=== PATIENT | female | born 1975 | race Caucasian/White ===

== ENCOUNTER 2022-12-24 15:07 | Emergency (ER) | payer MEDICARE, MEDICAID, SELFPAY ==
[2022-12-24 15:30] VITALS: BP 168/89; PULSE 80; RESP 18; TEMP 36.6; O2SAT 100; BMI 25.7
--- NOTE | 2022-12-24 15:31 | ED.GENADULT ---
HPI - General Adult General Chief complaint: Psychiatric Symptoms <MEHRDAD Roman - Last Filed: 12/25/22 15:09> Stated complaint: SECT 12 PER EMS <MEHRDAD Roman - Last Filed: 12/25/22 15:09> Time Seen by Provider: 12/24/22 15:31 <MEHRDAD Roman - Last Filed: 12/25/22 15:09> Source: patient and EMS <MEHRDAD Roman Last Filed: 12/25/22 15:09> Mode of arrival: EMS <MEHRDAD Roman - Last Filed: 12/25/22 15:09> Limitations: no limitations <MEHRDAD Roman - Last Filed: 12/25/22 15:09> History of Present Illness HPI narrative: Patient is a 47 year old assigned female at with no reported medical history presenting to the emergency department today on a section 12 for risky behavior. Patient's family states that the patient has been posting her location online, asking for money in exchange for sexual favors. Patient states that nothing is wrong and she does not want to answer my questions but she does want her medication, right now. <MEHRDAD Roman - Last Filed: 12/25/22 15:09> Onset (ago): day(s) <MEHRDAD Roman - Last Filed: 12/25/22 15:09> Severity: mild <MEHRDAD Roman - Last Filed: 12/25/22 15:09> Relieving factors: none <MEHRDAD Roman Last Filed: 12/25/22 15:09> Exacerbating factors: none <MEHRDAD Roman Last Filed: 12/25/22 15:09> Associated symptoms: denies other symptoms <MEHRDAD Roman - Last Filed: 12/25/22 15:09> Treatments prior to arrival: none <MEHRDAD Roman - Last Filed: 12/25/22 15:09> Related Data Home medications: Home Medications Medication Instructions Recorded Confirmed carbamazepine 200 mg tablet 200 mg PO TID 12/24/22 12/24/22 cholecalciferol (vitamin D3) 25 25 mcg PO DAILY 12/24/22 12/24/22 mcg (1,000 unit) tablet levetiracetam 1,000 mg tablet 2,000 mg PO BID 12/24/22 12/25/22 mirtazapine 7.5 mg tablet 7.5 mg PO BEDTIME 12/24/22 12/24/22 nortriptyline 10 mg capsule 10 mg PO TID 12/24/22 12/24/22 prazosin 1 mg capsule 1 mg PO BEDTIME 12/24/22 12/24/22 levetiracetam 1,000 mg tablet 1,000 mg PO DAILY@1200 12/25/22 12/25/22 Previous Rx's Medication Instructions Recorded cephalexin 500 mg capsule 500 mg PO Q6H 7 days #28 caps 12/25/22 <MEHRDAD Roman Last Filed: 12/25/22 15:09> Allergies/adverse reactions: Allergies Allergy/AdvReac Type Severity Reaction Status Date / Time red dye Allergy Rash Verified 12/24/22 19:42 <MEHRDAD Roman Last Filed: 12/25/22 15:09> Review of Systems Constitutional: Constitutional: Reports no additional constitutional complaints, Denies chills, Denies fever(s) and Denies night sweats <MEHRDAD Roman Last Filed: 12/25/22 15:09> Eyes: Eyes: Reports no additional eye complaints, Denies blurry vision, Denies change in vision, Denies diplopia, Denies eye discharge, Denies loss of vision and Denies eye pain <MEHRDAD Roman Last Filed: 12/25/22 15:09> ENT: Denies dizziness <MEHRADD Roman Last Filed: 12/25/22 15:09> Cardiovascular: Cardiovascular: Reports no additional cardiovascular complaints, Denies chest pain, Denies lightheadedness, Denies Loss of Consciousness and Denies dyspnea <MEHRDAD Roman Last Filed: 12/25/22 15:09> Respiratory: Respiratory: Reports no additional respiratory complaints and Denies dyspnea <MEHRDAD Roman Last Filed: 12/25/22 15:09> Gastrointestinal: Gastrointestinal: Reports no additional gastrointestinal complaints, Denies abdominal pain, Denies melena, Denies hematochezia, Denies change in bowel habits and Denies change in stool character <MEHRDAD Roman Last Filed: 12/25/22 15:09> Genitourinary: Genitourinary: Denies hematuria, Denies urinary frequency, Denies dysuria, Denies urinary incontinence, Denies urinary hesitancy and Denies urinary urgency <MEHRDAD Roman - Last Filed: 12/25/22 15:09> Musculoskeletal: Musculoskeletal: Reports no additional musculoskeletal complaints, Denies numbness and Denies tingling <MEHRDAD Roman - Last Filed: 12/25/22 15:09> Neurologic: Reports behavioral changes, Denies dizziness, Denies loss of vision, Denies numbness and Denies tingling <MEHRDAD Roman - Last Filed: 12/25/22 15:09> Psychiatric: Psychiatric: Reports behavioral changes <MEHRDAD Roman - Last Filed: 12/25/22 15:09> Endocrine: Endocrine: Reports no additional endocrine complaints <MEHRDAD Roman - Last Filed: 12/25/22 15:09> Hematologic/Lymphatic: Hematologic/Lymphatic: Reports no additional hematologic/lymphatic complaints <MEHRDAD Roman - Last Filed: 12/25/22 15:09> Allergic/Immunologic: Allergic/Immunologic: Reports no additional allergic/immunologic complaints <MEHRDAD Roman - Last Filed: 12/25/22 15:09> [facility] Past Medical History Attestation statement: The following information was validated with the patient. <MEHRDAD Roman - Last Filed: 12/25/22 15:09> Source: old records reviewed and nursing notes reviewed <MEHRDAD Roman - Last Filed: 12/25/22 15:09> Social History Social History: Social History Advance Directives: No Advance Directives Information Provided: No Healthcare Proxy: No Guardian: No <MEHRDAD Roman - Last Filed: 12/25/22 15:09> Physical Exam ED Vital Signs: Vital Signs - 24 hr 12/25/22 20:00 12/26/22 06:44 12/26/22 07:16 Temperature 99.2 F 97.8 F 97.3 F Pulse Rate 99 85 93 Respiratory Rate 20 15 16 Blood Pressure 136/101 H 124/53 L 114/71 Pulse Oximetry 95 100 100 Oxygen Delivery Method Room Air Room Air Room Air BMI result Body Mass Index 25.7 <MEHRDAD Roman - Last Filed: 12/25/22 15:09> Vital Signs - 24 hr 12/25/22 20:00 12/26/22 06:44 12/26/22 07:16 Temperature 99.2 F 97.8 F 97.3 F Pulse Rate 99 85 93 Respiratory Rate 20 15 16 Blood Pressure 136/101 H 124/53 L 114/71 Pulse Oximetry 95 100 100 Oxygen Delivery Method Room Air Room Air Room Air BMI result Body Mass Index 25.7 <Link Correa MD - Last Filed: 12/26/22 15:51> Const General: cooperative, no acute distress, alert and awake <MEHRDAD Roman - Last Filed: 12/25/22 15:09> Nutritional Appearance: well nourished <MEHRDAD Roman - Last Filed: 12/25/22 15:09> Orientation/consciousness: patient oriented x3 <MEHRDAD Roman - Last Filed: 12/25/22 15:09> Limitations: no limitations <MEHRDAD Roman - Last Filed: 12/25/22 15:09> HENMT Head: Yes normal to inspection and Yes atraumatic <MEHRDAD Roman - Last Filed: 12/25/22 15:09> Ears: hearing grossly normal bilaterally and external ears normal <MEHRDAD Roman - Last Filed: 12/25/22 15:09> General nose exam: Normal external nose present, no nasal discharge noted and no epistaxis <MEHRDAD Roman - Last Filed: 12/25/22 15:09> Face and sinus: Yes normal facial exam, No abrasion and No laceration <MEHRDAD Roman - Last Filed: 12/25/22 15:09> Mouth: Normal oral and palatal mucosa present, no drooling and no muffled voice <MEHRDAD Roman - Last Filed: 12/25/22 15:09> Eyes General: appearance normal, both eyes and all related structures <MEHRDAD Roman Last Filed: 12/25/22 15:09> Periorbital: periorbital findings normal <MEHRDAD Roman - Last Filed: 12/25/22 15:09> Eyelids: Yes eyelids normal <Elsa High PA - Last Filed: 12/25/22 15:09> Conjunctivae: conjunctivae normal <Elsa High PA - Last Filed: 12/25/22 15:09> Pupils: Equal, round and reactive pupils present <Elsa High PA - Last Filed: 12/25/22 15:09> EOM: EOMs intact bilaterally <Elsa High PA - Last Filed: 12/25/22 15:09> Neck Neck: Yes normal visual inspection, Yes full ROM and Yes no lymphadenopathy <Elsa High PA - Last Filed: 12/25/22 15:09> Chest Chest palpation & inspection: normal inspection of the chest <Elsa High PA - Last Filed: 12/25/22 15:09> Resp Effort & Inspection: normal respiratory effort and able to speak in complete sentences <Elsa High PA - Last Filed: 12/25/22 15:09> Auscultation: clear to auscultation bilaterally <Elsa High PA - Last Filed: 12/25/22 15:09> Cardio Rate: regular rate <Elsa High PA - Last Filed: 12/25/22 15:09> Rhythm: regular rhythm <Elsa High PA - Last Filed: 12/25/22 15:09> GI Inspection: Yes normal to inspection <Elsa High PA - Last Filed: 12/25/22 15:09> Palpation (GI): Soft to palpation, not firm and nontender <Elsa High PA - Last Filed: 12/25/22 15:09> Neuro General: patient oriented x3 and moves all extremities <Elsa High PA - Last Filed: 12/25/22 15:09> Cranial nerves: Yes Equal, round and reactive pupils present <Elsa High PA - Last Filed: 12/25/22 15:09> Cognition (Neuro): normal cognition <Elsa High PA - Last Filed: 12/25/22 15:09> Motor exam (neuro): 5/5 motor strength present throughout <Elsa High PA - Last Filed: 12/25/22 15:09> Sensory Exam: Normal double simultaneous stimulation for sensation <MEHRDAD Roman Last Filed: 12/25/22 15:09> Coordination: [id number] test normal <MEHRDAD Roman Last Filed: 12/25/22 15:09> Extrem General: Yes normal to inspection, Yes full ROM and Yes capillary refill normal <MEHRDAD Roman Last Filed: 12/25/22 15:09> Psych Affect: Animated affect present <MEHRDAD Roman Last Filed: 12/25/22 15:09> Thought process: Illogical thought process present <MEHRDAD Roman Last Filed: 12/25/22 15:09> Insight: Limited insight present (Psych) <MEHRDAD Roman Last Filed: 12/25/22 15:09> Judgement: Limited judgement present (Psych) <MEHRDAD Roman Last Filed: 12/25/22 15:09> Course Course Course Narrative: 12/25/2022 1508: Patient cleared for discharge. Patient has a UTI. Discharge and antibiotics put in. <MEHRDAD Roman Last Filed: 12/25/22 15:09> 12/25/2022 1508: Patient cleared for discharge. Patient has a UTI. Discharge and antibiotics put in. 0 01/2023: End physician observation: The patient will be discharged in the care of a DDS. <Link Correa MD - Last Filed: 12/26/22 15:51> Medications Administered Generic Name Dose Route Start Last Admin Trade Name Terese PRN Reason Stop Dose Admin Carbamazepine 200 mg 12/24/22 21:00 12/26/22 14:53 Carbamazepine 200 Mg Tablet PO 200 mg TID OLEKSANDR Administration Levetiracetam 2,000 mg 12/25/22 09:30 12/26/22 08:55 Levetiracetam 1,000 Mg Tablet PO 2,000 mg BID OLEKSANDR Administration Levetiracetam 1,000 mg 12/25/22 12:00 12/26/22 12:25 Levetiracetam 1,000 Mg Tablet PO 1,000 mg DAILY@1200 [facility] Administration Mirtazapine 7.5 mg 12/24/22 21:00 12/25/22 20:01 Mirtazapine 7.5 Mg Tablet PO 7.5 mg BEDTIME OLEKSANDR Administration Nortriptyline HCl 10 mg 12/24/22 21:00 12/26/22 14:53 Nortriptyline Hcl 10 Mg Capsule PO 10 mg TID OLEKSANDR Administration Prazosin HCl 1 mg 12/24/22 21:00 12/25/22 20:01 Prazosin Hcl 1 Mg Capsule PO 1 mg BEDTIME OLEKSANDR Administration Protocol Vitamin D 25 mcg 12/25/22 09:00 12/26/22 08:56 Cholecalciferol (Vitamin D3) 25 Mcg Tablet PO 25 mcg DAILY OLEKSANDR Administration Discontinued Medications Generic Name Dose Route Start Last Admin Trade Name Freq PRN Reason Stop Dose Admin Levetiracetam 1,000 mg 12/24/22 21:00 12/25/22 10:33 Levetiracetam 1,000 Mg Tablet PO Not Given BID OLEKSANDR Lorazepam 2 mg 12/24/22 22:38 12/24/22 22:51 Lorazepam 1 Mg Tablet PO 12/24/22 22:39 2 mg ONCE ONE Administration Lorazepam 2 mg 12/25/22 09:08 12/25/22 09:14 Lorazepam 1 Mg Tablet PO 12/25/22 09:09 2 mg ONCE ONE Administration Lorazepam 2 mg 12/25/22 22:16 12/25/22 22:20 Lorazepam 1 Mg Tablet PO 12/25/22 22:17 2 mg ONCE ONE Administration Olanzapine 5 mg 12/24/22 22:38 12/24/22 22:51 Olanzapine 5 Mg Tablet PO 12/24/22 22:39 5 mg ONCE ONE Administration Olanzapine 5 mg 12/25/22 22:16 12/25/22 22:20 Olanzapine 5 Mg Tablet PO 12/25/22 22:17 5 mg ONCE ONE Administration <MEHRDAD Roman - Last Filed: 12/25/22 15:09> Medications Administered Generic Name Dose Route Start Last Admin Trade Name Freq PRN Reason Stop Dose Admin Carbamazepine 200 mg 12/24/22 21:00 12/26/22 14:53 Carbamazepine 200 Mg Tablet PO 200 mg TID OLEKSANDR Administration Levetiracetam 2,000 mg 12/25/22 09:30 12/26/22 08:55 Levetiracetam 1,000 Mg Tablet PO 2,000 mg BID OLEKSANDR Administration Levetiracetam 1,000 mg 12/25/22 12:00 12/26/22 12:25 Levetiracetam 1,000 Mg Tablet PO 1,000 mg DAILY@1200 OLEKSANDR Administration Mirtazapine 7.5 mg 12/24/22 21:00 12/25/22 20:01 Mirtazapine 7.5 Mg Tablet PO 7.5 mg BEDTIME OLEKSANDR Administration Nortriptyline HCl 10 mg 12/24/22 21:00 12/26/22 14:53 Nortriptyline Hcl 10 Mg Capsule PO 10 mg TID OLEKSANDR Administration Prazosin HCl 1 mg 12/24/22 21:00 12/25/22 20:01 Prazosin Hcl 1 Mg Capsule PO 1 mg BEDTIME OLEKSANDR Administration Protocol Vitamin D 25 mcg 12/25/22 09:00 12/26/22 08:56 Cholecalciferol (Vitamin D3) 25 Mcg Tablet PO 25 mcg DAILY OLEKSANDR Administration Discontinued Medications Generic Name Dose Route Start Last Admin Trade Name Freq PRN Reason Stop Dose Admin Levetiracetam 1,000 mg 12/24/22 21:00 12/25/22 10:33 Levetiracetam 1,000 Mg Tablet PO Not Given BID OLEKSANDR Lorazepam 2 mg 12/24/22 22:38 12/24/22 22:51 Lorazepam 1 Mg Tablet PO 12/24/22 22:39 2 mg ONCE ONE Administration Lorazepam 2 mg 12/25/22 09:08 12/25/22 09:14 Lorazepam 1 Mg Tablet PO 12/25/22 09:09 2 mg ONCE ONE Administration Lorazepam 2 mg 12/25/22 22:16 12/25/22 22:20 Lorazepam 1 Mg Tablet PO 12/25/22 22:17 2 mg ONCE ONE Administration Olanzapine 5 mg 12/24/22 22:38 12/24/22 22:51 Olanzapine 5 Mg Tablet PO 12/24/22 22:39 5 mg ONCE ONE Administration Olanzapine 5 mg 12/25/22 22:16 12/25/22 22:20 Olanzapine 5 Mg Tablet PO 12/25/22 22:17 5 mg ONCE ONE Administration <Link Correa MD - Last Filed: 12/26/22 15:51> Medical Decision Making Medical Decision Making MDM Narrative: Patient is a 47 year old assigned female at with no reported medical history presenting to the emergency department today on a section 12. Patient's physical exam showed an illogical individual clearly worked up. Patient's blood work showed no acute process. Patient's urine is pending at this time. Patient is awaiting CARE team evaluation however, she will likely be kept for inpatient psychiatric care. <MEHRDAD Roman - Last Filed: 12/25/22 15:09> Patient is a 47 year old assigned female at with no reported medical history presenting to the emergency department today on a section 12. Patient's physical exam showed an illogical individual clearly worked up. Patient's blood work showed no acute process. Patient's urine is pending at this time. Patient is awaiting CARE team evaluation however, she will likely be kept for inpatient psychiatric care. 0645: Start physician observation: Patient presented with paranoid ideation, she is on a Section 12, bed search is being done by [facility]. There were no reported incidents by the nursing staff on this patient overnight. The patient's medications have been reconciled in ordered. The patient will be kept in the emergency department Behavioral Health Unit until appropriate disposition can be determined. <Link Correa MD - Last Filed: 12/26/22 15:51> Differential Diagnosis Differential Diagnoses: The differential diagnosis associated with the presentation includes <MEHRDAD Roman - Last Filed: 12/25/22 15:09> psychosis <MEHRDAD Roman - Last Filed: 12/25/22 15:09> Lab Data MDM Lab Attestation statement: I reviewed the patient's lab results. <MEHRDAD Roman - Last Filed: 12/25/22 15:09> Result Diagrams: 12/24/22 15:54 12/24/22 15:54 <MEHRDAD Roman - Last Filed: 12/25/22 15:09> Labs: Lab Results 12/24/22 12/24/22 12/24/22 Range/Units 15:54 15:54 15:54 WBC 7.6 (4.8-10.8) X10*3/uL RBC 4.42 (4.20-5.50) X10*6/uL Hgb 13.5 (12.0-16.0) g/dl Hct 40.7 (37.0-47.0) % MCV 92.1 (80.0-98.0) fL MCH 30.5 (27.0-33.0) pg MCHC 33.2 (31.0-35.0) g/dl RDW 13.3 (11.0-16.0) % Plt Count 313 (160-400) X10*3/uL MPV 10.1 (9.4-12.3) fL Immature Gran % (Auto) 0.4 (0.0-0.4) % Neut % (Auto) 66.2 (45-73) % Lymph % (Auto) 21.4 (20-40) % Starr % (Auto) 10.8 (2-11) % Eos % (Auto) 0.8 (0-4) % Baso % (Auto) 0.4 (0-2) % Lymph # (Auto) 1.6 (1.2-4.9) X10*3/uL Starr # (Auto) 0.8 (0.1-1.2) X10*3/uL Eos # (Auto) 0.1 (0.0-0.4) X10*3/uL Baso # (Auto) 0.0 (0.0-0.2) X10*3/uL Abs Immat Gran (auto) 0.03 (0.00-0.03) X10*3/uL Absolute Neuts (auto) 5.0 (2.0-8.3) x10*3/uL Absolute Nucleated RBC 0.000 (0.0-0.012) X10*3/uL Nucleated RBC % (auto) 0.0 (0.0-0.2) /100WBC Sodium 140 (135-145) mmol/L Potassium 3.5 (3.3-5.1) mmol/L Chloride 110 H (96-108) mmol/L Carbon Dioxide 19 L (22-29) mmol/L Anion Gap 15 (12-20) BUN 8 L (9-16) mg/dL Creatinine 0.74 (0.5-1.4) mg/dL Estim Creat Clear Calc 76.0 Estimated GFR > 60 Fasting Glucose 87 (60-99) mg/dL Calcium 8.9 (8.4-10.2) mg/dL Total Bilirubin 0.3 (0.0-1.0) mg/dL AST 33 H (5-31) U/L ALT 37 H (0-31) U/L Alkaline Phosphatase 136 H (39-117) U/L Total Protein 7.2 (6.5-8.0) g/dL Albumin 4.0 (3.5-5.0) g/dL Urine Color Urine Appearance Urine pH (5.0-9.0) Ur Specific Teller (1.005-1.025) Urine Protein (Neg-Trace) mg/dL Urine Glucose (UA) (Negative) mg/dL Urine Ketones (Negative) mg/dL Urine Blood (Negative) Urine Nitrite (Negative) Ur Leukocyte Esterase (Negative) Urine RBC (0-2) /HPF Urine WBC (0-5) /HPF Ur Squamous Epith Cells (0-2) /HPF Urine Bacteria (None Seen) Hyaline Casts (0-2) /LPF Urine Opiates Screen (Not Detect) Urine Fentanyl Screen (Not Detect) Ur Barbiturates Screen (Not Detect) Ur Phencyclidine Scrn (Not Detect) Ur Amphetamines Screen (Not Detect) U Benzodiazepines Scrn (Not Detect) Urine Cocaine Screen (Not Detect) U Marijuana (THC) Screen (Not Detect) COVID-19 (JANIS) Negative (Negative) COVID-19 Clin Com See Note 12/24/22 12/24/22 12/25/22 Range/Units 16:54 16:54 15:17 WBC (4.8-10.8) X10*3/uL RBC (4.20-5.50) X10*6/uL Hgb (12.0-16.0) g/dl Hct (37.0-47.0) % MCV (80.0-98.0) fL MCH (27.0-33.0) pg MCHC (31.0-35.0) g/dl RDW (11.0-16.0) % Plt Count (160-400) X10*3/uL MPV (9.4-12.3) fL Immature Gran % (Auto) (0.0-0.4) % Neut % (Auto) (45-73) % Lymph % (Auto) (20-40) % Starr % (Auto) (2-11) % Eos % (Auto) (0-4) % Baso % (Auto) (0-2) % Lymph # (Auto) (1.2-4.9) X10*3/uL Starr # (Auto) (0.1-1.2) X10*3/uL Eos # (Auto) (0.0-0.4) X10*3/uL Baso # (Auto) (0.0-0.2) X10*3/uL Abs Immat Gran (auto) (0.00-0.03) X10*3/uL Absolute Neuts (auto) (2.0-8.3) x10*3/uL Absolute Nucleated RBC (0.0-0.012) X10*3/uL Nucleated RBC % (auto) (0.0-0.2) /100WBC Sodium (135-145) mmol/L Potassium (3.3-5.1) mmol/L Chloride (96-108) mmol/L Carbon Dioxide (22-29) mmol/L Anion Gap (12-20) BUN (9-16) mg/dL Creatinine (0.5-1.4) mg/dL Estim Creat Clear Calc Estimated GFR Fasting Glucose (60-99) mg/dL Calcium (8.4-10.2) mg/dL Total Bilirubin (0.0-1.0) mg/dL AST (5-31) U/L ALT (0-31) U/L Alkaline Phosphatase (39-117) U/L Total Protein (6.5-8.0) g/dL Albumin (3.5-5.0) g/dL Urine Color Yellow Urine Appearance Cloudy Urine pH 6.0 (5.0-9.0) Ur Specific Teller >= 1.030 H (1.005-1.025) Urine Protein 30 (1+) H (Neg-Trace) mg/dL Urine Glucose (UA) Negative (Negative) mg/dL Urine Ketones Trace (Negative) mg/dL Urine Blood Negative (Negative) Urine Nitrite Negative (Negative) Ur Leukocyte Esterase Moderate (2+) H (Negative) Urine RBC 6-10 H (0-2) /HPF Urine WBC 11-20 H (0-5) /HPF Ur Squamous Epith Cells 11-20 (0-2) /HPF Urine Bacteria 2+ (None Seen) Hyaline Casts 0-2 (0-2) /LPF Urine Opiates Screen Not Detected (Not Detect) Urine Fentanyl Screen Not Detected (Not Detect) Ur Barbiturates Screen Not Detected (Not Detect) Ur Phencyclidine Scrn Not Detected (Not Detect) Ur Amphetamines Screen Not Detected (Not Detect) U Benzodiazepines Scrn Not Detected (Not Detect) Urine Cocaine Screen POSITIVE H (Not Detect) U Marijuana (THC) Screen Not Detected (Not Detect) COVID-19 (JANIS) Negative (Negative) COVID-19 Clin Com See Note <MEHRDAD Roman - Last Filed: 12/25/22 15:09> Lab Results 12/24/22 12/24/22 12/24/22 Range/Units 15:54 15:54 15:54 WBC 7.6 (4.8-10.8) X10*3/uL RBC 4.42 (4.20-5.50) X10*6/uL Hgb 13.5 (12.0-16.0) g/dl Hct 40.7 (37.0-47.0) % MCV 92.1 (80.0-98.0) fL MCH 30.5 (27.0-33.0) pg MCHC 33.2 (31.0-35.0) g/dl RDW 13.3 (11.0-16.0) % Plt Count 313 (160-400) X10*3/uL MPV 10.1 (9.4-12.3) fL Immature Gran % (Auto) 0.4 (0.0-0.4) % Neut % (Auto) 66.2 (45-73) % Lymph % (Auto) 21.4 (20-40) % Starr % (Auto) 10.8 (2-11) % Eos % (Auto) 0.8 (0-4) % Baso % (Auto) 0.4 (0-2) % Lymph # (Auto) 1.6 (1.2-4.9) X10*3/uL Starr # (Auto) 0.8 (0.1-1.2) X10*3/uL Eos # (Auto) 0.1 (0.0-0.4) X10*3/uL Baso # (Auto) 0.0 (0.0-0.2) X10*3/uL Abs Immat Gran (auto) 0.03 (0.00-0.03) X10*3/uL Absolute Neuts (auto) 5.0 (2.0-8.3) x10*3/uL Absolute Nucleated RBC 0.000 (0.0-0.012) X10*3/uL Nucleated RBC % (auto) 0.0 (0.0-0.2) /100WBC Sodium 140 (135-145) mmol/L Potassium 3.5 (3.3-5.1) mmol/L Chloride 110 H (96-108) mmol/L Carbon Dioxide 19 L (22-29) mmol/L Anion Gap 15 (12-20) BUN 8 L (9-16) mg/dL Creatinine 0.74 (0.5-1.4) mg/dL Estim Creat Clear Calc 76.0 Estimated GFR > 60 Fasting Glucose 87 (60-99) mg/dL Calcium 8.9 (8.4-10.2) mg/dL Total Bilirubin 0.3 (0.0-1.0) mg/dL AST 33 H (5-31) U/L ALT 37 H (0-31) U/L Alkaline Phosphatase 136 H (39-117) U/L Total Protein 7.2 (6.5-8.0) g/dL Albumin 4.0 (3.5-5.0) g/dL Urine Color Urine Appearance Urine pH (5.0-9.0) Ur Specific Teller (1.005-1.025) Urine Protein (Neg-Trace) mg/dL Urine Glucose (UA) (Negative) mg/dL Urine Ketones (Negative) mg/dL Urine Blood (Negative) Urine Nitrite (Negative) Ur Leukocyte Esterase (Negative) Urine RBC (0-2) /HPF Urine WBC (0-5) /HPF Ur Squamous Epith Cells (0-2) /HPF Urine Bacteria (None Seen) Hyaline Casts (0-2) /LPF Urine Opiates Screen (Not Detect) Urine Fentanyl Screen (Not Detect) Ur Barbiturates Screen (Not Detect) Ur Phencyclidine Scrn (Not Detect) Ur Amphetamines Screen (Not Detect) U Benzodiazepines Scrn (Not Detect) Urine Cocaine Screen (Not Detect) U Marijuana (THC) Screen (Not Detect) COVID-19 (JANIS) Negative (Negative) COVID-19 Clin Com See Note 04/03/23 04/03/23 04/04/23 Range/Units 16:54 16:54 15:17 WBC (4.8-10.8) X10*3/uL RBC (4.20-5.50) X10*6/uL Hgb (12.0-16.0) g/dl Hct (37.0-47.0) % MCV (80.0-98.0) fL MCH (27.0-33.0) pg MCHC (31.0-35.0) g/dl RDW (11.0-16.0) % Plt Count (160-400) X10*3/uL MPV (9.4-12.3) fL Immature Gran % (Auto) (0.0-0.4) % Neut % (Auto) (45-73) % Lymph % (Auto) (20-40) % Starr % (Auto) (2-11) % Eos % (Auto) (0-4) % Baso % (Auto) (0-2) % Lymph # (Auto) (1.2-4.9) X10*3/uL Starr # (Auto) (0.1-1.2) X10*3/uL Eos # (Auto) (0.0-0.4) X10*3/uL Baso # (Auto) (0.0-0.2) X10*3/uL Abs Immat Gran (auto) (0.00-0.03) X10*3/uL Absolute Neuts (auto) (2.0-8.3) x10*3/uL Absolute Nucleated RBC (0.0-0.012) X10*3/uL Nucleated RBC % (auto) (0.0-0.2) /100WBC Sodium (135-145) mmol/L Potassium (3.3-5.1) mmol/L Chloride (96-108) mmol/L Carbon Dioxide (22-29) mmol/L Anion Gap (12-20) BUN (9-16) mg/dL Creatinine (0.5-1.4) mg/dL Estim Creat Clear Calc Estimated GFR Fasting Glucose (60-99) mg/dL Calcium (8.4-10.2) mg/dL Total Bilirubin (0.0-1.0) mg/dL AST (5-31) U/L ALT (0-31) U/L Alkaline Phosphatase (39-117) U/L Total Protein (6.5-8.0) g/dL Albumin (3.5-5.0) g/dL Urine Color Yellow Urine Appearance Cloudy Urine pH 6.0 (5.0-9.0) Ur Specific Teller >= 1.030 H (1.005-1.025) Urine Protein 30 (1+) H (Neg-Trace) mg/dL Urine Glucose (UA) Negative (Negative) mg/dL Urine Ketones Trace (Negative) mg/dL Urine Blood Negative (Negative) Urine Nitrite Negative (Negative) Ur Leukocyte Esterase Moderate (2+) H (Negative) Urine RBC 6-10 H (0-2) /HPF Urine WBC 11-20 H (0-5) /HPF Ur Squamous Epith Cells 11-20 (0-2) /HPF Urine Bacteria 2+ (None Seen) Hyaline Casts 0-2 (0-2) /LPF Urine Opiates Screen Not Detected (Not Detect) Urine Fentanyl Screen Not Detected (Not Detect) Ur Barbiturates Screen Not Detected (Not Detect) Ur Phencyclidine Scrn Not Detected (Not Detect) Ur Amphetamines Screen Not Detected (Not Detect) U Benzodiazepines Scrn Not Detected (Not Detect) Urine Cocaine Screen POSITIVE H (Not Detect) U Marijuana (THC) Screen Not Detected (Not Detect) COVID-19 (JANIS) Negative (Negative) COVID-19 Clin Com See Note <Link Correa MD - Last Filed: 12/26/22 15:51> Independent Historian Clinical information obtained from an independent historian. History obtained from or confirmed by: EMS <MEHRDAD Roman - Last Filed: 12/25/22 15:09> Discharge Plan Discharge Clinical Impression: Acute psychosis, Urinary tract infection <MEHRDAD Roman - Last Filed: 12/25/22 15:09> Patient Disposition: Still a Patient <MEHRDAD Roman - Last Filed: 12/25/22 15:09> Instructions: Urinary Tract Infection in Women (DC) <MEHRDAD Roman - Last Filed: 12/25/22 15:09> Additional Instructions: Follow up with your primary care provider. Return to the emergency department immediately if your symptoms worsen or if you develop any dizziness, shortness of breath, difficulty breathing, chest pain, blurry vision, loss of vision, nausea, vomiting, abdominal pain, fever, chills, back pain, or any other complaints. <MEHRDAD Roman - Last Filed: 12/25/22 15:09> Prescriptions: New cephalexin 500 mg capsule 500 mg PO Q6H 7 Days Qty: 28 0RF No Action prazosin 1 mg Capsule 1 mg PO BEDTIME nortriptyline 10 mg Capsule 10 mg PO TID mirtazapine 7.5 mg Tablet 7.5 mg PO BEDTIME levetiracetam 1,000 mg Tablet 2,000 mg PO BID cholecalciferol (vitamin D3) 25 mcg (1,000 unit) Tablet 25 mcg PO DAILY carbamazepine 200 mg Tablet 200 mg PO TID levetiracetam 1,000 mg tablet 1,000 mg PO DAILY@1200 <MEHRDAD Roman - Last Filed: 12/25/22 15:09> Interventions: [place]-Suicide Risk Severity Scale Last Done: 12/26/22 06:00 <MEHRDAD Roman - Last Filed: 12/25/22 15:09>
[2022-12-24 16:05] LABS: MANUAL DIFF FLAG NO
[2022-12-24 16:07] LABS: Basophils Percent Auto 0.4 % (0-2); Eosinophils Absolute Auto 0.1 X10*3/uL (0.0-0.4); Eosinophils Percent Auto 0.8 % (0-4); Hematocrit 40.7 % (37.0-47.0); Hemoglobin 13.5 g/dl (12.0-16.0); Imm Gran Abs Auto 0.03 X10*3/uL (0.00-0.03); Imm Gran Pct Auto 0.4 % (0.0-0.4); Lymphocytes Absolute Auto 1.6 X10*3/uL (1.2-4.9); Lymphocytes Percent Auto 21.4 % (20-40); Mean Corpuscular HGB Conc 33.2 g/dl (31.0-35.0); Mean Corpuscular Hemoglobin 30.5 pg (27.0-33.0); Mean Corpuscular Volume 92.1 fL (80.0-98.0); Mean Platelet Volume 10.1 fL (9.4-12.3); Monocytes Absolute Auto 0.8 X10*3/uL (0.1-1.2); Monocytes Percent Auto 10.8 % (2-11); Neutrophils Percent Auto 66.2 % (45-73); Platelet Count 313 X10*3/uL (160-400); Red Blood Count 4.42 X10*6/uL (4.20-5.50); Red Cell Distribution Width 13.3 % (11.0-16.0); White Blood Count 7.6 X10*3/uL (4.8-10.8)
[2022-12-24 16:28] LABS: COVID-19 Test Negative (Negative); IDNOW Serial# BCCEAD1C
[2022-12-24 16:36] LABS: Alanine Aminotransferase 37 U/L (0-31); Alkaline Phosphatase 136 U/L (39-117); Anion Gap 15 (12-20); Aspartate Amino Transferase 33 U/L (5-31); Bilirubin Total 0.3 mg/dL (0.0-1.0); Blood Urea Nitrogen 8 mg/dL (9-16); Calcium 8.9 mg/dL (8.4-10.2); Carbon Dioxide 19 mmol/L (22-29); Chloride 110 mmol/L (96-108); Estimated Glomerular Filt Rate > 60; Glucose Fasting 87 mg/dL (60-99); Potassium 3.5 mmol/L (3.3-5.1); Sodium 140 mmol/L (135-145); Total Protein 7.2 g/dL (6.5-8.0)
--- NOTE | 2022-12-24 16:39 | MHC.CARE ---
CARE Team is made aware by N that pt was seen by N in the community and was made a bedsearch.
[2022-12-24 17:04] LABS: Appearance Urine Cloudy; Color Urine Yellow; Glucose Urine UA Negative (Negative); Leukocyte Esterase Urine Moderate (2+) (Negative); Nitrite Urine Negative (Negative); Specific Gravity - Urine >= 1.030 (1.005-1.025); UMIC TRIGGER UACC YES; Urine Blood Negative (Negative); Urine Ketones Trace mg/dL (Negative); Urine Protein 30 (1+) mg/dL (Neg-Trace)
[2022-12-24 17:11] LABS: Amphetamine Screen Urine Not Detected (Not Detect); Barbiturates, Urine Not Detected (Not Detect); Benzodiazepines Screen Urine Not Detected (Not Detect); Cannabinoid Screen Urine Not Detected (Not Detect); Cocaine Screen Urine POSITIVE (Not Detect); Fentanyl, urine Not Detected (Not Detect); Opiate Screen Urine Not Detected (Not Detect); Phencyclidine Screen Urine Not Detected (Not Detect)
[2022-12-24 17:42] LABS: Bacteria Urine 2+ (None Seen); Hyaline Casts Urine 0-2 /LPF (0-2); UACC Culture Trigger YES
[2022-12-24] MEDS: levETIRAcetam 1,000 MG TABLET 1000 MG PO (17:49)
--- NOTE | 2022-12-24 18:12 | PC.NURSE ---
patient pacing the unit, increasingly agitated about her seizure medications. ED provider made aware, told to give 2100 keppra early. Keppra given early- patient slowly starting to calm down. will CTM
[2022-12-24] MEDS: Prazosin HCL 1 MG CAPSULE PO (20:01)
[2022-12-24] MEDS: carBAMazepine 200 MG TABLET PO (20:01)
[2022-12-24] MEDS: Nortriptyline HCl 10 MG CAPSULE PO (20:01)
[2022-12-24] MEDS: Mirtazapine 7.5 MG TABLET PO (20:01)
[2022-12-24] MEDS: LORazepam 1 MG TABLET 2 MG PO (22:51)
[2022-12-24] MEDS: OLANZapine 5 MG TABLET PO (22:51)
--- NOTE | 2022-12-25 06:42 | PC.NURSE ---
Patient slept through the night, no distress observed/reported, thought content paranoid delusional, disposition is section 12 inpatient bed search per N, med rec completed, medication compliant, mood labile and tearful, Olanzapine 5 mg PO and Ativan 2 mg PO at 2251 with + effect, VSS, will continue to monitor.
[2022-12-25 07:01] VITALS: BP 122/83; PULSE 85; RESP 16; O2SAT 97
[2022-12-25] MEDS: Cholecalciferol (Vitamin D3) 25 MCG TABLET PO (08:47)
[2022-12-25] MEDS: Nortriptyline HCl 10 MG CAPSULE PO ×3 (09:14→20:01)
[2022-12-25] MEDS: LORazepam 1 MG TABLET 2 MG PO ×2 (09:14→22:20)
[2022-12-25] MEDS: carBAMazepine 200 MG TABLET PO ×3 (09:14→20:01)
--- NOTE | 2022-12-25 09:26 | ECG_ITS ---
Test Reason : MEDICAL CLEARANCE Blood Pressure : / mmHG Vent. Rate : 075 BPM Atrial Rate : 075 BPM P-R Int : 112 ms QRS Dur : 076 ms QT Int : 392 ms P-R-T Axes : 046 048 036 degrees QTc Int : 437 ms Normal sinus rhythm with sinus arrhythmia Septal infarct , age undetermined Abnormal ECG No previous ECGs available Referred By: Link Correa Electronically Signed By:Sohan Reid
[2022-12-25] MEDS: levETIRAcetam 1,000 MG TABLET 2000 MG PO ×2 (09:34→20:03)
--- NOTE | 2022-12-25 10:35 | PC.NURSE ---
Pt given PRN for anxiety with pos. effect noted. Pt sleeping at this time.
[2022-12-25] MEDS: levETIRAcetam 1,000 MG TABLET 1000 MG PO (14:44)
--- NOTE | 2022-12-25 15:29 | MHC.CARE ---
Patient evaluated by the CARE Team, she does not require an inpatient psychiatric admission. [facility] updated and in the process of making arrangements. Arch Cushion Skiving Machine Operator, YORDY Keller and ED provider, MEHRDAD Roman consulted and in agreement with plan to discharge patient.
[2022-12-25 15:40] LABS: COVID-19 Test Negative (Negative); IDNOW Serial# 08D9AD1C
--- NOTE | 2022-12-25 16:58 | PC.NURSE ---
Pt calm and to Nurses station for water.
--- NOTE | 2022-12-25 18:38 | MHC.CARE ---
[facility] did not make arrangements for patient's discharge as agreed and are not reachable after business hours. Patient will spend the night in the ED, CARE Team will coordinate the discharge tomorrow. Evening provider updated and removed the discharge order.
[2022-12-25 20:00] VITALS: BP 136/101; PULSE 99; RESP 20; TEMP 37.3; O2SAT 95
[2022-12-25] MEDS: Prazosin HCL 1 MG CAPSULE PO (20:01)
[2022-12-25] MEDS: Mirtazapine 7.5 MG TABLET PO (20:01)
[2022-12-25] MEDS: OLANZapine 5 MG TABLET PO (22:20)
--- NOTE | 2022-12-26 05:56 | PC.NURSE ---
Patient slept through the night, no distress observed/reported, thought content paranoid delusional, disposition per care team is current provider, medication compliant, mood labile and tearful, Olanzapine 5 mg PO and Ativan 2 mg PO at 2220 with + effect, VSS, will continue to monitor.
[2022-12-26 06:44] VITALS: BP 124/53; PULSE 85; RESP 15; TEMP 36.6; O2SAT 100
[2022-12-26 07:16] VITALS: BP 114/71; PULSE 93; RESP 16; TEMP 36.3; O2SAT 100
--- NOTE | 2022-12-26 07:18 | PC.NURSE ---
patient appears to remain asleep at present respirations are even and unlabored patient appears in no distress
[2022-12-26] MEDS: levETIRAcetam 1,000 MG TABLET 2000 MG PO (08:55)
[2022-12-26] MEDS: Cholecalciferol (Vitamin D3) 25 MCG TABLET PO (08:56)
[2022-12-26] MEDS: carBAMazepine 200 MG TABLET PO ×2 (08:56→14:53)
[2022-12-26] MEDS: Nortriptyline HCl 10 MG CAPSULE PO ×2 (08:56→14:53)
--- NOTE | 2022-12-26 10:22 | MHC.CARE ---
Messages left for [facility] supervisors last night. 914 Spoke to Aashish Masters from [facility] who was advised that patient is ready for discharge and arrangements need to be made by the agency. He will call his engineering supervisor and let us know.
[2022-12-26] MEDS: levETIRAcetam 1,000 MG TABLET 1000 MG PO (12:25)
--- NOTE | 2022-12-26 12:35 | MHC.CARE ---
CARE network development coordinator leaves message for John Vines [phone], who supervises pt's corrections caseworker, Aashish Downey at [facility]. This was at approx 1100. CARE Team reaches out to the regional clinical director Orestes Gallego [phone] at approx 1230 and left voicemail. 1312 CARE Team leaves a message for Nga García [phone] [facility] regional retail sales manager for the [facility] office.
--- NOTE | 2022-12-26 13:26 | MHC.CARE ---
1100 Call from John Vines [facility] electric repair supervisor. He reported that at this time, there is nowhere for patient to go. I informed him that patient does not meet level of care for inpatient psychiatric treatment and does not need medical attention and cannot remain in the ED. He said that they are looking into all possibilities and, we hope to have a meeting in the next day or two with a potential provider, I advised to expect a call from a CARE cooler supervisor to discuss this case. 1310 Call from Aashish Masters [facility] Decorating Instructor. He stated that there is nowhere for patient to go at this time, stated that his electric repair supervisor (John) emailed him and reported that [facility] was already informed that they do not have a plan for patient. He said the host from [facility] is coming back to town tomorrow 12/27/22 but it is unclear if it is possible for patient to return. CARE cooler supervisor, Michelle Brown, VBA DEVELOPER updated.
--- NOTE | 2022-12-26 13:36 | MHC.CARE ---
CARE rehabilitation coordinator speaks with John Vines [phone] [facility] carpenter supervisor, who reports that [facility] does not have a placement for pt to go to at this time. They cannot provide an estimated timeline for when they may have a placement. Contact info for regional sales director, Nga García [phone] providd to director, Alicia Magana, who will follow up.
--- NOTE | 2022-12-26 13:37 | MHC.SW.PN ---
This headline writer left a voicemail for the S Centerless Grinder, Penelope at [phone] requesting a call back with information on arranged discharge placement.
--- NOTE | 2022-12-26 15:41 | MHC.CARE ---
CARE Team receives a call from Nga [facility] talent acquisition program manager, who reports that pt will be picked up within the hour by Joselin Arenas, and will be brought to a temporary program.
== END 2022-12-26 16:09 | disposition still patient (30) ==
PROVIDERS: Emergency Medicine; Physician Assistant Medical; Emergency Provider Emergency Medicine Emergency Medical Services
DX: F23 Brief psychotic disorder (principal); N39.0 Urinary tract infection, site not specified; I49.8 Other specified cardiac arrhythmias; Z20.822 Contact with and (suspected) exposure to COVID-19; Z20.828 Contact with and (suspected) exposure to other viral communicable diseases; Z79.899 Other long term (current) drug therapy
CPT/HCPCS: 36415; 80053; 80307; 81001; 85025; 87086; 87635; 93005; 99285; S9485